=== PATIENT | female | born 1965 | race Caucasian/White ===

== ENCOUNTER 2017-09-25 17:10 | Emergency (ER) | payer OTHER ==
[2017-09-25 19:49] VITALS: BP 140/73
== END 2017-09-25 19:49 | disposition home or self-care (01) ==
LOC: ED 17:10
DX: I10 Essential (primary) hypertension (principal); F41.9 Anxiety disorder, unspecified; F43.9 Reaction to severe stress, unspecified; E11.9 Type 2 diabetes mellitus without complications